=== PATIENT | female | born 1945 | race Caucasian/White ===

== ENCOUNTER 2017-06-03 09:40 | Outpatient (CLI) | payer OTHER, MEDICARE | END 2017-06-03 18:32 | disposition home or self-care (01) | LOC: SMA 09:40 | PROVIDERS: ATTEND Physician Assistant Medical | DX: R92.8 Other abnormal and inconclusive findings on diagnostic imaging of breast (principal) | CPT/HCPCS: G0204 ==

== ENCOUNTER 2020-08-24 10:00 | Outpatient (CLI) | payer OTHER, MEDICARE | END 2020-08-24 20:36 | disposition home or self-care (01) | LOC: SMA 10:00 | PROVIDERS: ATTEND Family Medicine | DX: R92.2 Inconclusive mammogram (principal) | CPT/HCPCS: 77066 ==

== ENCOUNTER 2021-10-09 09:01 | Outpatient (CLI) | payer OTHER, MEDICARE | END 2021-10-09 18:54 | disposition home or self-care (01) | LOC: SMA 09:01 | PROVIDERS: ATTEND Family Medicine | DX: Z12.31 Encounter for screening mammogram for malignant neoplasm of breast (principal) | CPT/HCPCS: 77067 ==

== ENCOUNTER 2024-06-30 09:52 | Outpatient (CLI) | payer OTHER, MEDICARE | END 2024-06-30 18:51 | disposition home or self-care (01) | LOC: SMA 09:52 | PROVIDERS: ATTEND Physician Assistant Medical | DX: Z12.31 Encounter for screening mammogram for malignant neoplasm of breast (principal) | CPT/HCPCS: 77067 ==